=== PATIENT | female | born 1965 ===

== ENCOUNTER → 2022-01-05 10:42 | Outpatient (CLI) | payer OTHER, SELFPAY ==
--- NOTE | ~2022-01-05 | MR_ITS ---
EXAMINATION: MR brain/brain stem wo/w con DATE: 01/05/2022 11:30 INDICATION: Meningioma. TECHNIQUE: Magnetic resonance imaging (MRI) of the brain and brainstem was performed without and with 13 mL MultiHance intravenous contrast. COMPARISON: None. FINDINGS: Overlying left temporal parietal region, there is a 1.7 x 1.2 x 2.0 cm enhancing extra-axia l mass with dural tails, consistent with a meningioma. There is no acute ischemic infarct or intracra nial hemorrhage. The ventricles are normal in size. There is pamela bullosa involving the middle turb inates containing fluid. The mastoid air cells are normal. The orbits are normal. IMPRESSION: 1. 2.0 cm meningioma in left temporal parietal region. Reviewed, dictated and finalized at location A.
[2022-01-05 11:14] LABS: Estimated Glomerular Filt Rate > 60
== END ==
PROVIDERS: PCP Internal Medicine
DX: D32.9 Benign neoplasm of meninges, unspecified (principal)
CPT/HCPCS: 70553; A9577